=== PATIENT | female | born 1955 | race Hispanic/Latino ===

== ENCOUNTER 2017-11-22 14:07 | Inpatient (IN) | payer MEDICARE ==
[~2017-11-22] VITALS: Ht 152.4 cm; Wt 64.0 kg
[~2017-11-22 14:07] MED LIST: AEC81 PO; FAMO20TA32 PO; FOLI1TAB15 PO; INSU100V12 SQ; LEVO500T2 PO; LISI10TA7 PO; METF850T2 PO; SIMV20TA6 PO; TAMO20TA4 PO; TYL3 PO
[2017-11-22 14:42] LABS: MEAN CORPUSCULAR HEMOGLOBIN 18.8 pg (27.0-33.0); MEAN CORPUSCULAR VOLUME 64.8 fL (79-99); NUCLEATED RED BLOOD CELLS 0.3 % (0.0-0.19); PLATELET COUNT (AUTO) 152 K/uL (130-400); RED BLOOD CELL COUNT(AUTO) 2.95 MIL/uL (4.00-5.50); RED CELL DISTRIBUTION WIDTH 19.5 % (11.0-15.5); WHITE BLOOD COUNT (AUTO) 4.1 K/uL (4.8-10.8)
[2017-11-22 14:52] LABS: HEMATOCRIT 19.1 % (36-48); INR 1.22 (0.85-1.15); PARTIAL THROMBOPLASTIN TIME 27.2 SEC (26.3-35.5); PROTHROMBIN TIME 12.8 SEC (9.6-11.6)
[2017-11-22 15:07] LABS: CREATININE 1.4 mg/dL (0.5-1.5); POTASSIUM 3.2 mmol/L (3.5-5.1)
[2017-11-22 15:11] LABS: ALBUMIN 2.2 g/dL (3.5-5.0); BILIRUBIN,TOTAL 1.1 mg/dL (0.2-1.0); TOTAL PROTEIN, SERUM 7.3 g/dL (6.0-8.3)
[2017-11-22 15:45] LABS: APPEARANCE,URINE Cloudy (CLEAR); BILIRUBIN,URINE Negative (NEGATIVE); COLOR,URINE Dark Yellow (YELLOW); GLUCOSE, URINE (UA) 250 mg/dL (NEGATIVE); KETONES,URINE Trace mg/dL (NEGATIVE); LEUKOCYTE ESTERASE ,URINE Large (NEGATIVE); NITRATE,URINE Negative (NEGATIVE); OCCULT BLOOD,URINE Negative (NEGATIVE); PROTEIN,URINE Negative (NEGATIVE)
[2017-11-22 15:52] LABS: RBC,URINE None Seen /HPF (0-1)
[2017-11-22 15:53] LABS: BACTERIA,URINE Moderate /HPF (None Seen); SQUAMOUS EPITHELIAL CELL,UR 50-100 /LPF (0-2)
[2017-11-22 16:14] LABS: RETICULOCYTE % (AUTO) 1.97 % (0.42-2.23)
[2017-11-22 16:23] LABS: FERRITIN 6 ng/mL (15-150); IRON, SERUM 15 mcg/dL (50-170)
[2017-11-22] MEDS ORDERED: SODIUM CHLORIDE 0.9% 1000ML 1,000 ML IV ONE (16:25)
[2017-11-22 16:39] LABS: BASOPHILS % (MANUAL) 2 % (0-2); EOSINOPHILS % (MANUAL) 2 % (1-6); LYMPHOCYTES % (MANUAL) 19 % (22-44); MAN.DIFF COMMENT-IMPRESSION MANUAL DIFFERENTIAL; MONOCYTES % (MANUAL) 14 % (2-9); REACTIVE LYMPHOCYTES 1 % (0-0); SEGMENTED NEUTROPHILS % 62 % (40-70)
[2017-11-22 21:04] LABS: HEMATOCRIT 24.6 % (36-48)
[2017-11-22 22:55] VITALS: BP 142/70
[2017-11-22] MEDS ORDERED: ACETAMINOPHEN-CODEINE 300/30MG TAB PO PRN (23:30)
[2017-11-22] MEDS ORDERED: ONDANSETRON HCL 4 MG/2 ML VIAL IV PRN (23:30)
[2017-11-22] MEDS ORDERED: ACETAMINOPHEN 325 MG TAB PO PRN (23:30)
[2017-11-22] MEDS ORDERED: HYDRALAZINE HCL 20 MG/ML VIAL IV PRN (23:30)
[2017-11-23] MEDS ORDERED: LEVOFLOXACIN 500 MG/D5W 100 ML 100 ML IV SCH
[2017-11-23] MEDS ORDERED: CYAN10009 PO (01:21)
[2017-11-23] MEDS ORDERED: FERR-82 PO (01:21)
[2017-11-23] MEDS ORDERED: XALA2.5OS OU (01:21)
[2017-11-23 03:46] VITALS: BP 131/75
[2017-11-23 04:56] LABS: BASOPHILS % (AUTO) 1.4 % (0.0-5.0); HEMATOCRIT 26.4 % (36-48); LYMPHOCYTES % (AUTO) 23.8 % (21.0-51.0); MEAN CORPUSCULAR HEMOGLOBIN 22.8 pg (27.0-33.0); MEAN CORPUSCULAR HGB CONC 32.5 g/dL (32.0-36.0); MEAN CORPUSCULAR VOLUME 70.1 fL (79-99); MONOCYTES % (AUTO) 15.5 % (3.0-13.0); NEUTROPHILS % (AUTO) 58.3 % (40.0-77.0); NUCLEATED RED BLOOD CELLS 0.3 % (0.0-0.19); PLATELET COUNT (AUTO) 136 K/uL (130-400); RED BLOOD CELL COUNT(AUTO) 3.77 MIL/uL (4.00-5.50); RED CELL DISTRIBUTION WIDTH 23.7 % (11.0-15.5); WHITE BLOOD COUNT (AUTO) 3.6 K/uL (4.8-10.8)
[2017-11-23 05:10] LABS: INR 1.28 (0.85-1.15); PARTIAL THROMBOPLASTIN TIME 32.1 SEC (26.3-35.5); PROTHROMBIN TIME 13.4 SEC (9.6-11.6)
[2017-11-23 05:14] LABS: CREATININE 1.1 mg/dL (0.5-1.5); POTASSIUM 3.4 mmol/L (3.5-5.1)
[2017-11-23 08:00] VITALS: BP 142/71
[2017-11-23] MEDS: PANTOPRAZOLE SODIUM 40 MG TABLET.DR PO SCH ×2 (08:16→20:10)
[2017-11-23] MEDS: SPIRONOLACTONE 25 MG TAB PO SCH ×2 (08:16→20:10)
[2017-11-23 11:46] VITALS: BP 129/73
[2017-11-23 16:00] VITALS: BP 135/67
[2017-11-23] MEDS ORDERED: INSULIN HUMULIN R 100 UNIT/ML 3ML SQ ONE (16:17)
[2017-11-23] MEDS: INSULIN HUMULIN R 100 UNIT/ML 3ML SQ SCH ×2 (16:39→20:18)
[2017-11-23] MEDS: METFORMIN HCL 850 MG TABLET PO SCH (16:51)
[2017-11-23 20:24] VITALS: BP 130/58
[2017-11-23] MEDS ORDERED: ATORVASTATIN CALCIUM 10 MG TABLET PO SCH (21:00)
[2017-11-23] MEDS ORDERED: INSULIN DETEMIR 10ML 100 UNIT/ML 10ML SQ SCH (21:00)
[2017-11-23] MEDS ORDERED: LATANOPROST 2.5 ML DROPS OU SCH (21:00)
[2017-11-23 23:31] VITALS: BP 129/69
[2017-11-24] VITALS (11 sets, daily range): BP systolic 115–147; BP diastolic 57–72
[2017-11-24 06:13] LABS: HEMATOCRIT 26.1 % (36-48); MEAN CORPUSCULAR HEMOGLOBIN 21.7 pg (27.0-33.0); MEAN CORPUSCULAR HGB CONC 31.1 g/dL (32.0-36.0); MEAN CORPUSCULAR VOLUME 69.8 fL (79-99); PLATELET COUNT (AUTO) 131 K/uL (130-400); RED BLOOD CELL COUNT(AUTO) 3.73 MIL/uL (4.00-5.50); WHITE BLOOD COUNT (AUTO) 3.8 K/uL (4.8-10.8)
[2017-11-24 06:20] LABS: MAGNESIUM 1.5 mg/dL (1.80-2.40); POTASSIUM 3.1 mmol/L (3.5-5.1)
[2017-11-24] MEDS: INSULIN HUMULIN R 100 UNIT/ML 3ML SQ SCH ×3 (06:44→16:08)
[2017-11-24 07:20] LABS: BAND NEUTROPHILS % (MANUAL) 1 % (0-2); EOSINOPHILS % (MANUAL) 3 % (1-6); LYMPHOCYTES % (MANUAL) 29 % (22-44); MONOCYTES % (MANUAL) 10 % (2-9); SEGMENTED NEUTROPHILS % 57 % (40-70)
[2017-11-24 07:22] LABS: MAN.DIFF COMMENT-IMPRESSION MANUAL DIFFERENTIAL; PLATELET MORPHOLOGY COMMENT ADEQUATE
[2017-11-24] MEDS: METFORMIN HCL 850 MG TABLET PO SCH ×2 (08:09→16:19)
[2017-11-24] MEDS: SPIRONOLACTONE 25 MG TAB PO SCH (08:09)
[2017-11-24] MEDS: PANTOPRAZOLE SODIUM 40 MG TABLET.DR PO SCH (08:09)
[2017-11-24] MEDS ORDERED: CYANOCOBALAMIN (VITAMIN B-12) 1,000 MCG TABLET PO SCH (09:00)
[2017-11-24] MEDS ORDERED: FAMOTIDINE 20MG TAB 20 MG TAB PO SCH (09:00)
[2017-11-24] MEDS ORDERED: FERROUS SULFATE 325 MG TABLET.DR PO SCH (09:00)
[2017-11-24] MEDS ORDERED: ALBUMIN (HUMAN) 25% 200 ML IV SCH (10:00)
[2017-11-24] MEDS ORDERED: POTASSIUM CHLORIDE 20 MEQ ERTAB PO SCH (11:45)
[2017-11-24] MEDS ORDERED: INSULIN GLARGINE 100 UNITS/ML 10 ML VIAL SQ SCH (21:00)
== END 2017-11-24 17:30 | disposition home or self-care (01) | DRG 433 ==
LOC: EDH 14:07 → EDHIP 17:00 → 3AH 22:21
PROVIDERS: ADMIT Family Medicine; ATTEND Family Medicine
PROC: 30233N1 Transfusion of Nonautologous Red Blood Cells into Peripheral Vein, Percutaneous Approach (ICD-10-PCS; 2017-11-22)
PROC: 0W9G3ZZ Drainage of Peritoneal Cavity, Percutaneous Approach (ICD-10-PCS; principal; 2017-11-24)
DX: K74.60 Unspecified cirrhosis of liver (principal); R18.8 Other ascites; K75.81 Nonalcoholic steatohepatitis (NASH); D50.0 Iron deficiency anemia secondary to blood loss (chronic); E11.9 Type 2 diabetes mellitus without complications; E78.5 Hyperlipidemia, unspecified; I10 Essential (primary) hypertension; N39.0 Urinary tract infection, site not specified; K80.20 Calculus of gallbladder without cholecystitis without obstruction
CPT/HCPCS: 36415; 49083; 71010; 74176; 80048; 80053; 81001; 82140; 82270; 82378; 82607; 82728; 82746; 82948; 83010; 83540; 83690; 83735; 83880; 84484; 85025; 85045; 85610; 85730; 86304; 86850; 86900; 86901; 86922; 87071; 87205; 88313; 93005; J1815; J1956; J7030; P9016; P9046

== ENCOUNTER 2018-02-17 21:43 | Emergency (ER) | payer MEDICARE ==
[~2018-02-17 21:43] MED LIST changes: +CYAN10009 PO; +FERR-82 PO; +XALA2.5OS OU
[2018-02-17 22:21] LABS: BASOPHILS % (AUTO) 1.3 % (0.0-5.0); HEMATOCRIT 30.3 % (36-48); LYMPHOCYTES % (AUTO) 17.5 % (21.0-51.0); MEAN CORPUSCULAR HEMOGLOBIN 31.6 pg (27.0-33.0); MEAN CORPUSCULAR HGB CONC 34.8 g/dL (32.0-36.0); MEAN CORPUSCULAR VOLUME 90.8 fL (79-99); MONOCYTES % (AUTO) 13.6 % (3.0-13.0); NEUTROPHILS % (AUTO) 66.6 % (40.0-77.0); PLATELET COUNT (AUTO) 246 K/uL (130-400); RED BLOOD CELL COUNT(AUTO) 3.34 MIL/uL (4.00-5.50); RED CELL DISTRIBUTION WIDTH 15.6 % (11.0-15.5); WHITE BLOOD COUNT (AUTO) 6.2 K/uL (4.8-10.8)
[2018-02-17 22:30] LABS: CARBON DIOXIDE 26 mmol/L (21-32); CHLORIDE 101 mmol/L (101-111); CREATININE 1.6 mg/dL (0.5-1.5); GLOMERULAR FILTR. RATE CALC 34 mL/min (>60); GLUCOSE,RANDOM 348 mg/dL (70-105); POTASSIUM 4.8 mmol/L (3.5-5.1); SODIUM SERUM 134 mmol/L (136-145); UREA NITROGEN, BLOOD 19 mg/dL (7-18)
[2018-02-17 22:31] LABS: INR 1.16 (0.85-1.15); PARTIAL THROMBOPLASTIN TIME 31.4 SEC (26.3-35.5); PROTHROMBIN TIME 12.1 SEC (9.6-11.6)
[2018-02-17 22:43] LABS: ALANINE AMINOTRANSFERASE 13 U/L (12-78); AMYLASE 70 U/L (25-115); ASPARTATE AMINOTRANSFERASE 27 U/L (10-37); CREATINE KINASE MB < 0.5 ng/mL (0.5-3.6); CREATINE KINASE, TOTAL 47 U/L (21-232); LIPASE 338 U/L (114-286); TOTAL PROTEIN, SERUM 8.2 g/dL (6.0-8.3)
[2018-02-18 03:00] LABS: B-TYPE NATRIURETIC PEPTIDE 65 pg/mL (0-100)
== END 2018-02-18 02:04 | disposition home or self-care (01) ==
LOC: EDH 21:43
DX: R18.8 Other ascites (principal); K74.69 Other cirrhosis of liver; N28.9 Disorder of kidney and ureter, unspecified; E11.9 Type 2 diabetes mellitus without complications; I10 Essential (primary) hypertension; E78.5 Hyperlipidemia, unspecified; Z79.4 Long term (current) use of insulin
CPT/HCPCS: 36415; 71045; 74176; 80053; 82150; 82550; 82553; 83690; 83880; 84484; 85025; 85610; 85730; 93005

== ENCOUNTER → 2018-03-04 | Outpatient (CLI) | payer MEDICARE ==
[~2018-03-04] MED LIST changes: +ALBUMIN (HUMAN) 25% 200 ML IV SCH; +LIDOCAINE HCL 1% 20 ML VIAL ONE
[2018-03-04 08:21] LABS: BASOPHILS % (AUTO) 0.9 % (0.0-5.0); EOSINOPHILS % (AUTO) 1.3 % (0.0-8.0); HEMATOCRIT 29.1 % (36-48); LYMPHOCYTES % (AUTO) 22.2 % (21.0-51.0); MEAN CORPUSCULAR HGB CONC 33.8 g/dL (32.0-36.0); MEAN CORPUSCULAR VOLUME 91.5 fL (79-99); MONOCYTES % (AUTO) 12.9 % (3.0-13.0); NEUTROPHILS % (AUTO) 62.7 % (40.0-77.0); PLATELET COUNT (AUTO) 268 K/uL (130-400); RED BLOOD CELL COUNT(AUTO) 3.18 MIL/uL (4.00-5.50); RED CELL DISTRIBUTION WIDTH 15.8 % (11.0-15.5); WHITE BLOOD COUNT (AUTO) 5.9 K/uL (4.8-10.8)
[2018-03-04 08:38] LABS: ALBUMIN 1.9 g/dL (3.5-5.0); BILIRUBIN,TOTAL 0.9 mg/dL (0.2-1.0); CREATININE 1.9 mg/dL (0.5-1.5); POTASSIUM 5.5 mmol/L (3.5-5.1); TOTAL PROTEIN, SERUM 7.9 g/dL (6.0-8.3)
[2018-03-04 08:43] LABS: INR 1.18 (0.85-1.15); PROTHROMBIN TIME 12.1 SEC (9.6-11.6)
[2018-03-04 11:17] LABS: ALBUMIN,BODY FLUID 0.6 g/dL
[2018-03-04 11:28] LABS: SPECIMENTYPE,BODY FLUID ASCITES
[2018-03-04 11:29] LABS: BODY FLUID RBC 127 /cu. mm.; BODY FLUID WBC 159 /cu. mm.; COLOR,BODY FLUID YELLOW (LT YELLOW); TOTAL VOLUME,BODY FLUID 9000 mL
[2018-03-04 11:30] LABS: APPEARANCE BODY FLUID CLOUDY (CLEAR)
[2018-03-04 11:49] LABS: BF LYMPHOCYTE 33 %; BF MESOTHELIAL 54 %; BF MONOCYTE 12 %
== END | disposition home or self-care (01) ==
LOC: RAH 07:13
PROVIDERS: ATTEND Internal Medicine Gastroenterology
DX: R18.8 Other ascites (principal)
CPT/HCPCS: 36415; 49083; 80053; 82042; 84157; 85025; 85610; 87071; 87205; 88108; 89051; P9046